=== PATIENT | female | born 2000 | race African-American/Black ===

== ENCOUNTER 2024-01-06 20:36 | Emergency (ER) | payer OTHER ==
[~2024-01-06] VITALS: Ht 175.3 cm; Wt 72.6 kg
[2024-01-06 21:26] VITALS: BP 134/87; TEMP 99.1; O2SAT 99
[2024-01-06] MEDS ORDERED: EPIN0.1519 IM (21:34)
[2024-01-06] MEDS ORDERED: FAMO20TA80 PO (21:34)
[2024-01-06] MEDS ORDERED: DIPH25TA62 PO (21:34)
[2024-01-06] MEDS ORDERED: PRED20TA PO (21:34)
[2024-01-06] MEDS ORDERED: predniSONE 20 MG TABLET ONE (21:35)
[2024-01-06] MEDS ORDERED: diphenhydrAMINE HCL 25 MG CAPSULE ONE (21:35)
[2024-01-06] MEDS ORDERED: FAMOTIDINE (20 MG) 20 MG TABLET ONE (21:36)
[2024-01-06] MEDS: FAMOTIDINE (20 MG) 20 MG TABLET PO ONE (21:39)
[2024-01-06] MEDS: predniSONE 10 MG TABLET PO ONE (21:39)
[2024-01-06] MEDS: diphenhydrAMINE HCL 50 MG CAPSULE PO ONE (21:39)
== END 2024-01-06 22:32 | disposition home or self-care (01) ==
LOC: ER 20:45
DX: T78.1XXA Other adverse food reactions, not elsewhere classified, initial encounter (principal); J45.909 Unspecified asthma, uncomplicated; Z91.012 Allergy to eggs; Z91.018 Allergy to other foods; X58.XXXA Exposure to other specified factors, initial encounter
CPT/HCPCS: 99284; Q0163; J7512 ×2